=== PATIENT | male | born 1955 | race Caucasian/White ===

== ENCOUNTER 2023-08-09 11:08 | Observation (INO) ==
[2023-08-09 15:56] VITALS: BMI 29.7
[2023-08-09] MEDS ORDERED: ZOFRAN INJ 4 MG VIAL IVP PRN (15:59)
[2023-08-09] MEDS ORDERED: CONSULT PHARMACY - POTASSIUM & MAGNESIUM XX SCH (16:00)
[2023-08-09] MEDS ORDERED: READI-CAT 2 ONE (16:09)
[2023-08-09] MEDS: NS 1,000 ML IV 1,000 ML IV SCH (17:05)
[2023-08-09 17:15] LABS: BASOPHILS % (AUTO) 0.7 % (0.2-1.0); EOSINOPHILS # (AUTO) 0.2 x10^3/uL (0.0-0.2); EOSINOPHILS % (AUTO) 3.3 % (0.9-2.9); HEMATOCRIT 40.1 % (42.0-54.0); HEMOGLOBIN 13.4 g/dL (13.5-18.0); LYMPHOCYTES # (AUTO) 1.5 X10^3/uL (1.3-2.9); LYMPHOCYTES % (AUTO) 24.2 % (21.0-51.0); MEAN CORPUSCULAR HEMOGLOBIN 30.5 pg (27.0-34.0); MEAN CORPUSCULAR HGB CONC 33.5 g/dL (33.0-35.0); MEAN CORPUSCULAR VOLUME 91.1 fL (80.0-100.0); MEAN PLATELET VOLUME 6.9 fL (7.4-11.0); MONOCYTES # (AUTO) 0.7 x10^3/uL (0.3-0.8); MONOCYTES % (AUTO) 12.5 % (0.0-13.0); NEUTROPHILS # (AUTO) 3.6 x10^3/uL (2.2-4.8); NEUTROPHILS % (AUTO) 59.3 % (42.0-75.0); PLATELET COUNT 281 X10^3/uL (150.0-450.0); RED CELL DISTRIBUTION WIDTH 14.3 % (11.6-16.5)
[2023-08-09 17:28] LABS: ALANINE AMINOTRANSFERASE 21 Units/L (12-78); ALBUMIN 3.6 g/dL (3.4-5.0); ALKALINE PHOSPHATASE 66 Units/L (46-116); ASPARTATE AMINO TRANSFERASE 16 Units/L (15-37); BLOOD UREA NITROGEN 18 mg/dL (7-18); CALCIUM 9.1 mg/dL (8.5-10.1); CARBON DIOXIDE 29.8 mmol/L (21-32); CHLORIDE 104 mmol/L (98-107); GLUCOSE 99 mg/dL (65-99); POTASSIUM 4.5 mmol/L (3.5-5.1); SODIUM 140 mmol/L (136-145); eGFR NON BLACK RACES 49 (>60)
[2023-08-09 18:39] LABS: BILIRUBIN,URINE NEGATIVE (NEGATIVE); BLOOD/HEMOGLOBIN,URINE NEGATIVE (NEGATIVE); GLUCOSE, URINE 1+ (NEGATIVE); KETONES,URINE NEGATIVE (NEGATIVE); LEUKOCYTE ESTERASE ,URINE NEGATIVE (NEGATIVE); NITRITES,URINE NEGATIVE (NEGATIVE); PROTEIN,URINE 1+ (NEGATIVE); UROBILINOGEN,URINE NORMAL (NORMAL)
[2023-08-09 18:49] LABS: APPEARANCE,URINE CLEAR (CLEAR); BACTERIA,URINE TRACE /HPF (NEGATIVE); COLOR,URINE YELLOW (YELLOW); RBC,URINE NONE SEEN /HPF (0-3); SQUAMOUS EPITHELIAL CELL,UR RARE /HPF (NEGATIVE)
--- NOTE | 2023-08-09 19:41 | CT ---
EXAM:ABDCMEN/PELVIS WITH CONHISTORY:abdominal pain, nausea;COMPARISON:NoneTECHNIQUE:Multiple CT axial images of the abdomen and pelvis were obtained with IV contrast. Coronal and sagittal images were reconstructed. Dose reduction techniques included Automated Exposure Control (AEC) and adjustment of mA and kV.FINDINGS:Few linear areas in the lung bases are associated with small bullae or blebs. No consolidation to suggest pneumonia. Heart size at the upper limits of normal.The liver is normal in size and configuration. The gallbladder has no inflammation around it. The spleen is normal in size and shape.The adrenal glands are normal. The pancreas is normal.Renal enhancement is uniform and symmetric with no solid mass. There is no hydronephrosis or significant perirenal edema. The bladder is normally distended. It has no wall thickening or perivesical edema.The bowel is not dilated. There is no wall thickening in the bowel or edema around the bowel. There is a duodenum diverticulum in the 2nd segment. No inflammation around it. The appendix is normal in size with no inflammation around it. No evidence of appendicitis. There are diverticula in the colon. But there is no wall thickening or pericolonic edema to suggest acute diverticulitis.Degenerative changes are present in the spine.IMPRESSION:1. No acute findings2. Colonic diverticulaTHIS IS AN ELECTRONICALLY VERIFIED FINAL REPORT08/09/2023 7:38 PM - Electronically signed by Rupert Triana MD
[2023-08-09 19:43] LABS: CRYPTOSPORIDIUM PARVUM ANTIGEN NEGATIVE (NEGATIVE); GIARDIA LAMBLIA ANTIGEN NEGATIVE (NEGATIVE)
[2023-08-09] MEDS: FLEXERIL TAB 10 MG PO PRN (20:29)
[2023-08-09] MEDS: NORCO 5/325 MG TAB PO PRN (20:29)
[2023-08-10 05:33] LABS: BASOPHILS % (AUTO) 0.7 % (0.2-1.0); EOSINOPHILS # (AUTO) 0.3 x10^3/uL (0.0-0.2); EOSINOPHILS % (AUTO) 4.9 % (0.9-2.9); HEMATOCRIT 36.8 % (42.0-54.0); HEMOGLOBIN 12.5 g/dL (13.5-18.0); MEAN CORPUSCULAR HEMOGLOBIN 30.9 pg (27.0-34.0); MONOCYTES # (AUTO) 0.8 x10^3/uL (0.3-0.8); NEUTROPHILS # (AUTO) 3.1 x10^3/uL (2.2-4.8); NEUTROPHILS % (AUTO) 60.4 % (42.0-75.0); PLATELET COUNT 256 X10^3/uL (150.0-450.0); RED BLOOD COUNT 4.05 X10^6/uL (4.7-6.0); RED CELL DISTRIBUTION WIDTH 14.4 % (11.6-16.5); WHITE BLOOD COUNT 5.1 X10^3/uL (3.6-10.0)
[2023-08-10 05:36] LABS: ALANINE AMINOTRANSFERASE 17 Units/L (12-78); ALKALINE PHOSPHATASE 55 Units/L (46-116); ASPARTATE AMINO TRANSFERASE 13 Units/L (15-37); BLOOD UREA NITROGEN 13 mg/dL (7-18); CALCIUM 8.3 mg/dL (8.5-10.1); CARBON DIOXIDE 26.2 mmol/L (21-32); CHLORIDE 105 mmol/L (98-107); COR CA(FOR HYPOALB) 9.1 mg/dL (8.5-10.1); CREATININE 1.18 mg/dL (0.70-1.30); GLUCOSE 80 mg/dL (65-99); POTASSIUM 3.6 mmol/L (3.5-5.1); SODIUM 139 mmol/L (136-145); TOTAL PROTEIN 6.1 g/dL (6.4-8.2); eGFR NON BLACK RACES > 60 (>60)
[2023-08-10 08:47] VITALS: PULSE 52
[2023-08-10] MEDS: K-DUR TAB 20 MEQ PO SCH (12:58)
[2023-08-10] MEDS ORDERED: CONSULT PHARMACY - POTASSIUM & MAGNESIUM XX SCH (13:00)
[2023-08-10 13:03] VITALS: BP 176/88; RESP 20; TEMP 98.3; O2SAT 95
[2023-08-10] MEDS: FLAGYL TAB 500 MG PO SCH (13:47)
--- NOTE | 2023-08-29 11:41 | DR.CARTERS ---
Short Stay Summary - Admission Date Date of Admission: 08/09/23 - Discharge Date Discharge Date: 08/10/23 - Admission Diagnoses (1) Dehydration Status: Acute (2) Chronic diarrhea Status: Acute (3) Rectal bleeding Status: Acute (4) Dysphagia Status: Acute (5) Diabetes mellitus Status: Chronic (6) Essential hypertension Status: Chronic - Discharge Medications Discharge Medications: Home Medication List cyclobenzaprine 10 mg tablet 10 mg PO Q8H PRN muscle spasm 08/09/23 [History] hydroxychloroquine 200 mg tablet 200 mg PO BID 08/09/23 [History] insulin lispro 100 unit/mL subcutaneous pen (Humalog KwikPen (U-100) Insulin) 6 unit subcut TID 08/09/23 [History] levothyroxine 50 mcg tablet 50 mcg PO QDAY 08/09/23 [History] levothyroxine 50 mcg tablet 50 mcg PO QDAY 08/09/23 [History] Prescriptions: - Hospital Course Hospital Course: IS A 68 YEAR OLD PATIENT OF OURS. HE PRESENTED TO THE HOSPITALS DIRECT ADMISSION FROM THE OFFICE FOR TREATMENT OF DEHYDRATION, INTRACTABLE DIARRHEA, DYSPHAGIA, AND WEAKNESS. PATIENT ADMITS TO CHRONIC DIARRHEA, BUT REPORTS THAT IT HAS BEEN WORSE OVER THE PAST WEEK OR SO. HE REPORTS HAVING RECTAL BLEEDING ON AND OFF. HIS MEDICAL HX INCLUDES: DYSPHAGIA, NEUROPATHY, HTN, CARDIAC ARRHYTHMIA, SLEEP APNEA, CHRONIC KIDNEY DISEASE, DM II, HYPOTHYROIDISM, ANXIETY. ON ARRIVAL TO THE HOSPITAL, HIS VITALS WERE: 97.6-56-20-94%-149/79. LABS WERE OBTAINED. WBC 6.0, RBC 4.40, HGB 13.4, HCT 40.1, PLT COUNT 281, SODIUM 140, POTASSIUM 4.5, CHLORIDE 104, BUN 18, CREATININE 1.50, GLUCOSE 99, CALCIUM 9.1, TOTAL BILI 0.30, AST 16, ALT 21, ALK PHOS 66, TOTAL PROTEIN 7.0, ALBUMIN 3.6. A URINALYSIS WAS OBTAINED AND WAS UNREMARKABLE. STOOL WAS POSITIVE FOR OCCULT BLOOD, WHITE CELLS, AND C-DIFF TOX B GENE. THE ACTUAL TOXIN WAS NEGATIVE. STOOL CULTURES WERE SET UP. AN ABDOMEN/PELVIS CT WITH CONTRAST WAS OBTAINED AND REVEALED: FEW LINEAR AREAS IN THE LUNG BASES ARE ASSOCIATED WITH SMALL BULLAE OR BLEBS. NO CONSOLIDATION TO SUGGEST PNEUMONIA. HEART SIZE AT THE UPPER LIMITS OF NORMAL. THE LIVER IS NORMAL IN SIZE AND CONFIGURATION. THE GALLBLADDER HAS NO INFLAMMATION AROUND IT. THE SPLEEN IS NORMAL IN SIZE AND SHAPE. THE ADRENAL GLANDS ARE NORMAL. THE PANCREAS IS NORMAL. RENAL ENHANCEMENT IS UNIFORM AND SYMMETRIC WITH NO SOLID MASS. THERE IS NO HYDRONEPHROSIS OR SIGNIFICANT PERIRENAL EDEMA. THE BLADDER IS NORMALLY DISTENDED. IT HAS NO WALL THICKENING OR PERIVESICAL EDEMA. THE BOWEL IS NOT DILATED. THERE IS NO WALL THICKENING IN THE BOWEL OR EDEMA AROUND THE BOWEL. THERE IS A DUODENUM DIVERTICULUM IN THE 2ND SEGMENT. NO INFLAMMATION AROUND IT. THE APPENDIX IS NORMAL IN SIZE WITH NO INFLAMMATION AROUND IT. NO EVIDENCE OF APPENDICITIS. THERE ARE DIVERTICULA IN THE COLON. BUT THERE IS NO WALL THICKENING OR PERICOLONIC EDEMA TO SUGGEST ACUTE DIVERTICULITIS. DEGENERATIVE CHANGES ARE PRESENT IN THE SPINE. EKG WAS OBTAINED AND REVEALED: SINUS RHYTHM WITH HR 83 BPM. ON ADMISSION, HE WAS STARTED ON NORMAL SALINE AT 125 ML/HR, FLAGYL 500MG PO TID, ZOFRAN 4MG IV Q4H PRN, OTBS ACHS, HUMULIN R SLIDING SCALE, PERCOCET 5/325MG 1 TAB Q6H PRN, FLEXERIL 10MG TID PRN, AND THE POTASSIUM AND MAGNESIUM PROTOCOLS. WE PLANNED TO CONSULT , GENERAL SURGEON. OTHERWISE, WE PLANNED TO FOLLOW-UP WITH AM LABS AND CONTINUE TO MONITOR. ON MORNING ROUNDS, PATIENT IS ALERT AND ORIENTED, SITTING UP IN BED ON MORNING ROUNDS. HE REPORTS SOME IMPROVEMENT IN SYMPTOMS THIS MORNING AND IS REQUESTING DISCHARGE HOME. HE REPORTS DECREASED EPISODES IN DIARRHEA AND DECREASED ABDOMINAL PAIN. ON EXAMINATION, HE IS BRADYCARDIC WITH HR IN THE 50s. PATIENT REPORTS THAT THIS IS NORMAL FOR HIM. BILATERAL LUNGS ARE NOTED WITH DIMINISHED LUNG SOUNDS THROUGHOUT. ABDOMEN IS ROUND, SOFT, AND NON-TENDER WITH HYPERACTIVE BOWEL SOUNDS. GOOD RANGE OF MOTION NOTED TO UPPER AND LOWER EXTREMITIES WITH NO EDEMA NOTED. HIS VITALS THIS MORNING ARE: 98.0-52-18-94%-124/82. LABS WERE OBTAINED. WBC 5.1, RBC 4.05, HGB 12.5, HCT 36.8, PLT COUNT 256, SODIUM 139, POTASSIUM 3.6, CHLORIDE 105, BUN 13, CREATININE 1.18, GLUCOSE 80, CALCIUM 8.3, MAGNESIUM 1.7, TOTAL BILI 0.50, AST 13, ALT 17, ALK PHOS 55, TOTAL PROTEIN 6.1, ALBUMIN 3.0. STOOL CULTURES ARE PENDING. CONSULTED WITH PATIENT AND RECOMMENDED THAT PATIENT CONTINUE FLAGYL AND FOLLOW-UP WITH HIM AN OUTPATIENT FOR FURTHER WORK-UP. WE PLANNED FOR DISCHARGE. INSTRUCTIONS FOR MEDICATIONS AND FOLLOW-UP WERE DISCUSSED WITH PATIENT AND HIS SPOUSE. THEY VERBALIZED UNDERSTANDING OF ALL ORDERS. HE WAS INSTRUCTED TO FOLLOW-UP IN THE OFFICE ON 08/23/23 AT 3PM. PATIENT WAS DISCHARGED HOME WITH HIS SPOUSE IN STABLE CONDITION. TIME SPENT ON CLINICAL ASSESSMENT, REVIEWING LABS AND IMAGING, DECISION MAKING, DISCHARGE INSTRUCTIONS, PREPARING DISCHARGE PAPERS, AND DOCUMENTATION GREATER THAN 75 MINUTES. - Discharge Plan Disposition: 01 HOME, SELF-CARE Condition: Stable - Follow up/Referrals Follow up/Referrals: María Dorman [Nurse Practitioner] - 1 WEEK LATA FORD [STAFF PHYSICIAN] - 08/23/23 3:00 pm (EKG And COllon ) - Instructions Instructions: Viral Gastroenteritis, Adult, Food Choices to Help Relieve Diarrhea, Adult, Chronic Diarrhea, Diarrhea, Adult, [id number] Additional Instructions: Follow up with María Dorman Forms: Excuse From Work or School, Post Hospital Follow Up Care
== END 2023-08-10 14:18 | disposition home or self-care (01) ==
LOC: MED/SURG
PROVIDERS: ADMIT Internal Medicine; ATTEND Internal Medicine